=== PATIENT | male | born 1975 | race African-American/Black ===

== ENCOUNTER 2017-10-30 17:25 | Emergency (ER) | payer OTHER, MEDICAID ==
--- NOTE | 2017-10-30 17:47 | EDPHY ---
H & P Time Seen by Provider: 10/30/17 17:44 HPI/ROS: CHIEF COMPLAINT: Syncope HISTORY OF PRESENT ILLNESS: The patient is a 41 y/o male with a history of a 6 vessel coronary artery bypass graft 1 year ago, hypertension, and hypercholesterolemia complaining of a syncopal episode 2 hours ago. This evening he had just stood up and walked into the kitchen when he became lightheaded, his vision went dark, and he lost consciousness. After the episode he was immediately alert and oriented. He denies any injuries from the fall. No oral intake today prior to the episode. He didn't eat because he was busy. After the episode, he ate a sandwich and drank some water. He denies chest pain, shortness of breath, or any other associated symptoms. He denies being on anticoagulants. He took his usual medication this morning. He denies any recent changes to his medications. He has had a cold that resolved a few days ago. No prior syncopal episode. REVIEW OF SYSTEMS: A 10 point review of systems was performed and is negative with the exception of the elements mentioned in the history of present illness. Past Medical/Surgical History: 1. 6 vessel coronary artery bypass graft 1 year ago 2. Hypertension 3. Hypercholesterolemia Social History: Lives in [place], , employed Smoking Status: Current every day smoker Physical Exam: General Appearance: Alert, pleasant Eyes: Pupils equal and round, no conjunctival pallor ENT, Mouth: Mucous membranes moist Neck: Normal inspection Respiratory: Lungs are clear to auscultation Cardiovascular: Regular rate and rhythm, no murmur Gastrointestinal: Abdomen is soft and non-tender Neurological: Alert, oriented x3, cranial nerves II through XII intact, motor 5 /5, sensory intact to light touch Skin: Warm and dry, no rash Extremities: Nontender, no pedal edema Psychiatric: Mood and affect normal Constitutional: Initial Vital Signs Temperature (C) 36.9 C 10/30/17 17:35 Heart Rate 87 10/30/17 17:35 Respiratory Rate 16 10/30/17 17:35 Blood Pressure 120/83 H 10/30/17 17:35 O2 Sat (%) 96 10/30/17 17:35 O2 Delivery Mode Room Air Allergies/Adverse Reactions: No Known Allergies Allergy (Unverified 12/29/15 15:53) Home Medications: Medication Instructions Recorded Aspirin [Aspirin 81mg (*)] 81 mg PO DAILY #100 tab 01/03/16 Atorvastatin Calcium [Lipitor] 40 mg PO DAILY #60 tab 01/03/16 Furosemide [Lasix 20 MG (*)] 20 mg PO DAILY #10 tab 01/03/16 Metoprolol Tartrate [Lopressor 25 12.5 mg PO BID #60 tab 01/03/16 mg (*)] Medical Decision Making - Diagnostics EKG Interpretation: EKG interpreted by me reveals normal sinus rhythm, rate 78, no ST or T segment changes. Interpretation: Normal EKG ED Course/Re-evaluation: The patient presents after a syncopal episode. Most likely vasovagal episode due to not eating or drinking today. His exam was normal. EKG is normal sinus rhythm without evidence of ischemia or dysrhythmia. Labs are normal. Troponin is negative. athletic monitor revealed normal sinus rhythm throughout. There is no evidence for serious etiology of the syncopal episode. Plan for release with instructions to follow up with his cardiology and to consume regular meals and plenty of water. The patient agrees to this course of action. Differential Diagnosis: Differential diagnosis includes though is not limited to cardiac dysrhythmia, CVA, TIA, GI bleed, sepsis, hypoglycemia. - Data Points Laboratory Results: Laboratory Results 10/30/17 17:45 10/30/17 17:45 10/30/17 10/30/17 17:45 17:45 WBC 6.48 10^3/uL 10^3/uL (3.80-9.50) RBC 5.02 10^6/uL 10^6/uL (4.40-6.38) Hgb 15.6 g/dL g/dL (13.7-17.5) Hct 44.0 % % (40.0-51.0) MCV 87.6 fL fL (81.5-99.8) MCH 31.1 pg pg (27.9-34.1) MCHC 35.5 g/dL g/dL (32.4-36.7) RDW 12.8 % % (11.5-15.2) Plt Count 259 10^3/uL 10^3/uL (150-400) MPV 9.5 fL fL (8.7-11.7) Neut % (Auto) 49.3 % % (39.3-74.2) Lymph % (Auto) 39.7 % % (15.0-45.0) Boyle % (Auto) 9.4 % % (4.5-13.0) Eos % (Auto) 0.9 % % (0.6-7.6) Baso % (Auto) 0.5 % % (0.3-1.7) Nucleat RBC Rel Count 0.0 % % (0.0-0.2) Absolute Neuts (auto) 3.20 10^3/uL 10^3/uL (1.70-6.50) Absolute Lymphs (auto) 2.57 10^3/uL 10^3/uL (1.00-3.00) Absolute Monos (auto) 0.61 10^3/uL 10^3/uL (0.30-0.80) Absolute Eos (auto) 0.06 10^3/uL 10^3/uL (0.03-0.40) Absolute Basos (auto) 0.03 10^3/uL 10^3/uL (0.02-0.10) Absolute Nucleated RBC 0.00 10^3/uL 10^3/uL (0-0.01) Immature Gran % 0.2 % % (0.0-1.1) Immature Gran # 0.01 10^3/uL 10^3/uL (0.00-0.10) Sodium 141 mEq/L mEq/L (135-145) Potassium 3.8 mEq/L mEq/L (3.5-5.2) Chloride 99 mEq/L mEq/L (97-110) Carbon Dioxide 26 mEq/l mEq/l (22-31) Anion Gap 16 mEq/L mEq/L (8-16) BUN 9 mg/dL mg/dL (7-23) Creatinine 0.8 mg/dL mg/dL (0.7-1.3) Estimated GFR > 60 Glucose 97 mg/dL mg/dL (70-100) Calcium 10.2 mg/dL mg/dL (8.5-10.4) Troponin I < 0.012 ng/mL ng/mL (0.000-0.034) Departure - Departure Disposition: Home, Routine, Self-Care Clinical Impression: Syncope Qualifiers: Syncope type: unspecified Qualified Code(s): R55 - Syncope and collapse Condition: Good Instructions: Syncope (ED) Additional Instructions: 1. Ensure you are eating three complete meals a day. Drink plenty of water throughout the day. 2. Follow-up with Dr. Jackson in the office in 5-7 days. 3. Return to the emergency department for recurrent syncope, shortness of breath , chest pain, or any other worsening of condition. Referrals: Weston Jackson MD [Medical Doctor] - As per Instructions Stand Alone Forms: Work Excuse Report Scribed for: Corrie Hernandez Report Scribed by: Laura Avila Date of Report: 10/30/17 Time of Report: 17:47 Physician Review and Approval Statement: 10/30/17 17:47 Portions of this note were transcribed by a medical transport specialist. I personally performed a history, physical exam, medical decision making, and confirmed accuracy of information the transcribed note.
--- NOTE | 2017-10-30 17:53 | CPEKG ---
Heart Rate: 78 RR Interval: 769 P-R Interval: 196 QRSD Interval: 98 QT Interval: 364 QTC Interval: 415 P [place]: 37 QRS [place]: -10 T Wave [place]: 63 EKG Severity - NORMAL ECG - EKG Impression: SINUS RHYTHM Electronically Signed By: Corrie Hernandez 30-Oct-2017 18:03:56
[2017-10-30 18:07] LABS: PLATELET COUNT 259 10^3/uL (150-400)
[2017-10-30 18:11] VITALS: BP 109/72; PULSE 80; RESP 14; O2SAT 95
[2017-10-30 18:34] VITALS: TEMP 97.9
== END 2017-10-30 18:34 | disposition home or self-care (01) ==
DX: R55 Syncope and collapse (principal); I10 Essential (primary) hypertension; F17.200 Nicotine dependence, unspecified, uncomplicated; Z79.82 Long term (current) use of aspirin

== ENCOUNTER 2019-03-09 21:30 | Emergency (ER) | payer OTHER | END 2019-03-09 23:11 | disposition home or self-care (01) ==